=== PATIENT | male | born 1950 | race Hispanic/Latino ===

== ENCOUNTER → 2017-07-30 | Outpatient (CLI) | payer MEDICARE ==
--- NOTE | 2017-07-30 13:03 | Diagnostic Imaging Report ---
PROCEDURE:US LIVER COMPARISON:None. INDICATIONS:elevated liver enzymes TECHNIQUE: Reyes-scale and color doppler transverse and longitudinal images of the right upper quadrant of the abdomen were obtained. FINDINGS: Liver: 12.3 cm in right mid-clavicular line. Normal echogenicity. No masses. Main portal vein: 0.7 cm. Hepatopetal flow. Gallbladder: Shadowing fundal galstones. No wall thickening. Common Bile Duct: 0.3 cm Sonographic Hassan's sign: Negative Right kidney: 10.3 cm. Normal echogenicity. No solid masses or hydronephrosis. Pancreas: The visualized portions are unremarkable. Inferior vena cava: Patent Aorta: Within normal limits Ascites: None in the right upper quadrant of the abdomen. CONCLUSION: Cholelithiasis without evidence of cholecystitis. Dictated by: Alonzo Ng M.D. on 07/30/2017 at 13:06 Electronically approved by: Alonzo Ng M.D. on 07/30/2017 at 13:06
== END ==
LOC: US 11:28
PROVIDERS: ATTEND Family Medicine
DX: R74.8 Abnormal levels of other serum enzymes (principal)
CPT/HCPCS: 76705

== ENCOUNTER 2020-01-12 10:03 | Emergency (ER) | payer MEDICARE ==
[~2020-01-12] VITALS: Ht 170.2 cm; Wt 68.0 kg
== END 2020-01-12 11:49 | disposition home or self-care (01) ==
LOC: ER 10:27
DX: S61.211A Laceration without foreign body of left index finger without damage to nail, initial encounter (principal); W27.1XXA Contact with garden tool, initial encounter; Y93.H2 Activity, gardening and landscaping; Y92.007 Garden or yard of unspecified non-institutional (private) residence as the place of occurrence of the external cause; I10 Essential (primary) hypertension
CPT/HCPCS: 99283

== ENCOUNTER 2020-05-03 19:30 | Emergency (ER) | payer MEDICARE ==
[~2020-05-03] VITALS: Ht 170.2 cm; Wt 68.0 kg
== END 2020-05-03 22:24 | disposition home or self-care (01) ==
LOC: ER 19:34
DX: M54.2 Cervicalgia (principal); M25.512 Pain in left shoulder; R07.89 Other chest pain; W00.0XXA Fall on same level due to ice and snow, initial encounter; Y93.01 Activity, walking, marching and hiking; Y92.008 Other place in unspecified non-institutional (private) residence as the place of occurrence of the external cause; I10 Essential (primary) hypertension
CPT/HCPCS: 71250; 72125; 99283

== ENCOUNTER → 2021-09-15 | Outpatient (CLI) | payer MEDICARE | LOC: RAD 10:51 | PROVIDERS: ATTEND Family Medicine | DX: J43.9 Emphysema, unspecified (principal) | CPT/HCPCS: 71046 ==